=== PATIENT | male | born 1965 | race Caucasian/White ===

== ENCOUNTER → 2018-12-24 | Outpatient (CLI) | payer OTHER ==
--- NOTE | 2018-12-24 12:46 | RAD ---
CT of the chest without contrast, 12/24/2018: HISTORY: Pneumonia Noncontrast scans were obtained as requested. The thoracic aorta is not dilated. Minimal coronary artery calcification is present. The heart is at the upper limits of normal in size. No mediastinal adenopathy is seen. There is no evidence of pleural fluid. No pulmonary consolidation or mass is evident. There are minimal streaky and groundglass opacities laterally in the right middle lobe likely representing atelectasis or scarring. There are mild scattered degenerative changes in the spine. IMPRESSION: 1. Minimal streaky and groundglass peripheral opacities laterally in the right middle lobe likely representing scarring or atelectasis. 2. Minimal coronary artery calcifications. PQRS Compliance Statement: One or more of the following individualized dose reduction techniques were utilized for this examination: 1. Automated exposure control 2. Adjustment of the mA and/or kV according to patient size 3. Use of iterative reconstruction technique Electronically signed by: Chalo Barroso MD (12/24/2018 12:43 PM) [facility]
== END | disposition home or self-care (01) ==
LOC: CT 11:29
PROVIDERS: ATTEND Family Medicine
DX: I25.10 Atherosclerotic heart disease of native coronary artery without angina pectoris (principal); J15.8 Pneumonia due to other specified bacteria; I51.7 Cardiomegaly; R06.09 Other forms of dyspnea
CPT/HCPCS: 71250

== ENCOUNTER → 2019-02-15 | Outpatient (CLI) | payer OTHER ==
--- NOTE | 2019-02-15 10:58 | CARD ---
MR#: [id number] Date of Study: 02/15/2019 Ordering Physician: ALYCIA VILLALTA, Referring Physician: ALYCIA VILLALTA, Tech: Soni Ascencio RDCS APPROVED REPORT EXAM: Two-dimensional and M-mode echocardiogram with Doppler and color Doppler. Other Information Quality : AverageHR: 60bpm Rhythm : NSR INDICATION Cardiomegaly seen on Xray 2D DIMENSIONS RVDd3.5 (2.9-3.5cm)Left Atrium(2D)3.2 (1.6-4.0cm) IVSd1.0 (0.7-1.1cm)Aortic Root(2D)3.2 (2.0-3.7cm) LVDd4.6 (3.9-5.9cm)LVOT Diameter2.3 (1.8-2.4cm) PWd1.0 (0.7-1.1cm)LVDs3.3 (2.5-4.0cm) FS (%) 28.3 %SV53.3 ml LVEF(%)54.7 (>50%) M-Mode DIMENSIONS Left Atrium(MM)3.52 (2.5-4.0cm)Aortic Root3.42 (2.2-3.7cm) Aortic Valve AoV Peak Sam.118.0cm/sAoV VTI23.9cm AO Peak GR.5.6mmHgLVOT Peak Sam.106.7cm/s LVOT VTI 21.12cmAO Mean GR.3mmHg ESSENCE (VMAX)3.27uh4PQS (VTI)3.61cm2 Mitral Valve MV E Dvwoqogd94.0cm/sMV DECEL [id number] MV A Qgswfxfx41.7cm/sE/A Ratio1.5 Pulmonary Valve PV Peak Ujucschr18.1cm/sPV Peak Grad.1mmHg Tricuspid Valve TR P. Oefbbkzk782xr/sRAP [id number] TR Peak Gr.51utHqCFMR69yjHk LEFT VENTRICLE The left ventricle is normal size. There is normal left ventricular wall thickness. The left ventricu lar systolic function is normal. The Ejection Fraction is 55-60%. There is normal LV segmental wall m otion. Transmitral Doppler flow pattern is Grade II-pseudonormal filling dynamics. RIGHT VENTRICLE The right ventricle is normal size. There is normal right ventricular wall thickness. The right ventr icular systolic function is normal. ATRIA The left atrium size is normal. The right atrium size is normal. The interatrial septum is intact wit h no evidence for an atrial septal defect or patent foramen ovale as noted on 2-D or Doppler imaging. AORTIC VALVE The aortic valve is normal in structure and function. The aortic valve is trileaflet. Doppler and Col or Flow revealed no significant aortic regurgitation. There is no significant aortic valvular stenosi s. MITRAL VALVE The mitral valve is normal in structure and function. There is no evidence of mitral valve prolapse. There is no mitral valve stenosis. Doppler and Color-flow revealed trace mitral regurgitation. TRICUSPID VALVE The tricuspid valve is normal in structure and function. Doppler and Color Flow revealed trace tricus pid regurgitation. The PA pressure was estimated at 22 mmHg. There is no tricuspid valve prolapse or vegetation. There is no tricuspid valve stenosis. PULMONIC VALVE The pulmonic valve is not well visualized. Doppler and Color Flow revealed no pulmonic valvular regur gitation. There is no pulmonic valvular stenosis. GREAT VESSELS The aortic root is normal in size. The ascending aorta is normal in size. The IVC is normal in size a nd collapses >50% with inspiration. PERICARDIAL EFFUSION There is no evidence of significant pericardial effusion. Critical Notification Critical Value: No <Conclusion> The left ventricular systolic function is normal. The Ejection Fraction is 55-60%. There is normal LV segmental wall motion. Trace mitral regurgitation. Trace tricuspid regurgitation. The PA pressure was estimated at 22 mmHg. There is no evidence of significant pericardial effusion. Signed by : Carlos Enrique Butts, Electronically Approved : 02/15/2019 10:57:49
== END | disposition home or self-care (01) ==
LOC: ECHO 09:59
PROVIDERS: ATTEND Family Medicine
DX: I11.9 Hypertensive heart disease without heart failure (principal); J15.8 Pneumonia due to other specified bacteria
CPT/HCPCS: 93306

== ENCOUNTER → 2022-02-20 | Outpatient (CLI) | payer OTHER ==
--- NOTE | 2022-02-20 16:05 | RAD ---
EXAM: XR EXAM OF ANKLE_LEFT 3V 02/20/2022 10:11 AM CLINICAL INDICATION: History of fracture COMPARISON: None TECHNIQUE: AP, oblique, and lateral views of the left ankle FINDINGS: There is a nondisplaced subacute or healing distal fibular fracture with indistinct fractu re margins and some sclerosis at the medial edge of the fracture. No other fracture or malalignment. The talar dome is intact. There is mild soft tissue swelling. IMPRESSION: Subacute or healing distal fibular fracture. Electronically signed by: Bobbi Blount MD (02/20/2022 4:02 PM) [id number]
== END ==
LOC: RAD 10:00
PROVIDERS: ATTEND Orthopaedic Surgery Sports Medicine
DX: S82.832D Other fracture of upper and lower end of left fibula, subsequent encounter for closed fracture with routine healing (principal); M79.89 Other specified soft tissue disorders; X58.XXXD Exposure to other specified factors, subsequent encounter
CPT/HCPCS: 73610